=== PATIENT | female | born 1995 | race Caucasian/White ===

== ENCOUNTER 2016-11-05 22:30 | Emergency (ER) | payer BC ==
[~2016-11-05 22:30] MED LIST: Sodium Chloride 0.9% 1,000 ML BAG ONE
[2016-11-05 23:49] LABS: Clarity Slightly Cloudy (Clear); Pregnancy Test - Urine (BHCG) NEGATIVE (NEGATIVE); Pregu Control Background? CLEAR/WHITE (CLR/WHITE); Pregu Control Bar Appear? YES (CONTROL BAR); Specific Gravity 1.029 (1.002-1.036)
[2016-11-05 23:50] LABS: Bacteria/HPF 2+ HPF (None Seen); Bilirubin Negative (Negative); Blood, Urine Negative (Negative); Glucose, Urine (Dipstick) Negative (Negative); Leukocyte Small (Negative); Nitrite Negative (Negative); Protein, Urine (Dipstick) Negative (Neg-Trace); RBC/HPF 0-3 HPF (0-3); Renal Epithelial 0-3 HPF (0-3); Specific Gravity, Urine 1.029 (1.002-1.036); Transitional Epithelial 0-3 HPF (0-3); Urobilinogen 0.2 mg/dL (0.2-1.0); Yeast-All Forms Rare HPF (None Seen)
[2016-11-05] MEDS ORDERED: diphenhydrAMINE HCl 50 MG/ML 1 ML VIAL ONE (23:56)
[2016-11-05] MEDS ORDERED: Ketorolac Tromethamine 30 MG/ML VIAL ONE (23:56)
[2016-11-05] MEDS ORDERED: Ondansetron HCl/PF 4 MG/2 ML Vial ONE (23:56)
[2016-11-05] MEDS ORDERED: Metoclopramide HCl 10 MG/2 ML VIAL ONE (23:56)
[2016-11-06] MEDS ORDERED: Ciprofloxacin 500 MG TAB ONE (00:02)
== END 2016-11-06 01:34 | disposition home or self-care (01) ==
LOC: MADERS 22:30
DX: G43.909 Migraine, unspecified, not intractable, without status migrainosus (principal); N39.0 Urinary tract infection, site not specified
CPT/HCPCS: 81001; 81025; 87086; 96361; 96374; 96375; J1200; J1885; J2405; J2765; J7050